=== PATIENT | male | born 1975 ===

== ENCOUNTER 2021-05-28 04:07 | Inpatient (IN) | payer MEDICAID ==
[~2021-05-28] VITALS: Ht 172.7 cm; Wt 103.0 kg
[2021-05-28] MEDS ORDERED: SODIUM CHLORIDE 0.9% 100 ML ONE (04:37)
[2021-05-28] MEDS ORDERED: IOHEXOL 350 MG/ML 100 ML VIAL ONE (04:37)
[2021-05-28] MEDS ORDERED: METOCLOPRAMIDE HCL 5 MG/ML 2 ML VIAL IVP ONE (04:45)
[2021-05-28] MEDS ORDERED: DIAZEPAM 5 MG/ML 2 ML SYRINGE IVP ONE (04:45)
[2021-05-28 04:50] LABS: GLUCOSE,POINT OF CARE 153 MG/DL (70-110)
[2021-05-28 05:06] LABS: ACETAMINOPHEN < 2 mcg/mL (10-30)
[2021-05-28 05:10] LABS: EOSINOPHILS % (AUTO) 2.6 % (1.0-6.0); HEMATOCRIT 49.6 % (41-53); HEMOGLOBIN 15.6 g/dL (13.5-17.5); LYMPHOCYTES # (AUTO) 3.4 K/uL (1.0-4.8); LYMPHOCYTES % (AUTO) 26.9 % (22.0-44.0); MEAN CORPUSCULAR HEMOGLOBIN 20.8 pg (26.0-34.0); MEAN CORPUSCULAR HGB CONC 31.5 G/dL (31.0-37.0); MEAN CORPUSCULAR VOLUME 66 fL (80-100); MONOCYTES # (AUTO) 0.8 K/uL (0.1-1.0); MONOCYTES % (AUTO) 6.5 % (2.0-9.0); NEUTROPHILS # (AUTO) 8.1 K/uL (1.8-7.7); PLATELET COUNT (AUTO) 192 K/uL (150-450); RED BLOOD CELL COUNT(AUTO) 7.49 MIL/uL (4.50-5.90)
[2021-05-28 05:11] LABS: INR 0.9 (0.9-1.1); PROTHROMBIN TIME 10.1 SEC (9.4-11.6)
[2021-05-28 05:28] LABS: ALBUMIN 3.4 g/dL (3.4-5.0); BILIRUBIN,TOTAL 0.4 mg/dL (0.1-1.0); CALCIUM, TOTAL 8.9 mg/dL (8.8-10.5); CREATININE 1.44 mg/dL (0.60-1.30); POTASSIUM 3.5 mmol/L (3.5-5.1)
[2021-05-28] MEDS: NiCARDipine HCL 25 MG in SODIUM CHLORIDE 0.9% 240 ML IV PRN ×3 (05:34→11:10)
[2021-05-28 06:21] LABS: SALICYLATE 1.4 mg/dL (2.8-20.0)
[2021-05-28] MEDS ORDERED: 0.9% SODIUM CHLORIDE 10 ML SYRINGE IVP PRN (08:00)
[2021-05-28] MEDS ORDERED: ONDANSETRON HCL 4 MG/2 ML VIAL IVP PRN (08:45)
[2021-05-28] MEDS ORDERED: BISACODYL 10 MG RECTAL RECTAL SUPPOSITORY PR PRN (08:45)
[2021-05-28 08:50] LABS: COVID AG,FIA SOURCE NASOPHARYNGEAL
[2021-05-28] MEDS: PANTOPRAZOLE SODIUM 40 MG/VIAL IVP SCH (08:56)
[2021-05-28] MEDS: HydrALAZINE HCL 20 MG/ML VIAL IVP PRN ×2 (10:44→18:45)
[2021-05-28] MEDS: NiCARDipine HCL 25 MG in DEXTROSE 5%-WATER 240 ML IV PRN ×4 (13:20→22:09)
[2021-05-29] MEDS: HydrALAZINE HCL 20 MG/ML VIAL IVP PRN (02:17)
[2021-05-29] MEDS: NiCARDipine HCL 25 MG in DEXTROSE 5%-WATER 240 ML IV PRN ×3 (03:49→22:57)
[2021-05-29 06:42] LABS: BASOPHILS % (AUTO) 1.1 % (0.0-2.0); EOSINOPHILS % (AUTO) 0.2 % (1.0-6.0); HEMATOCRIT 46.4 % (41-53); LYMPHOCYTES # (AUTO) 2.3 K/uL (1.0-4.8); LYMPHOCYTES % (AUTO) 15.4 % (22.0-44.0); MEAN CORPUSCULAR HEMOGLOBIN 21.3 pg (26.0-34.0); MEAN CORPUSCULAR HGB CONC 32.4 G/dL (31.0-37.0); MEAN CORPUSCULAR VOLUME 66 fL (80-100); MONOCYTES % (AUTO) 6.8 % (2.0-9.0); NEUTROPHILS # (AUTO) 11.4 K/uL (1.8-7.7); NEUTROPHILS % (AUTO) 76.5 % (40.0-70.0); PLATELET COUNT (AUTO) 226 K/uL (150-450); RED BLOOD CELL COUNT(AUTO) 7.06 MIL/uL (4.50-5.90); RED CELL DISTRIBUTION WIDTH 15.8 % (11.5-14.5)
[2021-05-29 06:50] LABS: ALBUMIN 3.5 g/dL (3.4-5.0); BILIRUBIN,TOTAL 0.6 mg/dL (0.1-1.0); CREATININE 1.5 mg/dL (0.60-1.30); POTASSIUM 3.5 mmol/L (3.5-5.1); TOTAL PROTEIN, SERUM 7.7 g/dL (6.4-8.2)
[2021-05-29 06:57] LABS: PROTHROMBIN TIME 10.5 SEC (9.4-11.6)
[2021-05-29] MEDS: ACETAMINOPHEN 325 MG TABLET PO PRN (07:53)
[2021-05-29] MEDS: PANTOPRAZOLE SODIUM 40 MG/VIAL IVP SCH (10:46)
[2021-05-29] MEDS: LABETALOL HCL 100 MG TABLET PO SCH ×2 (11:39→21:16)
[2021-05-29] MEDS: LOSARTAN POTASSIUM 25 MG TABLET PO SCH ×2 (11:39→21:16)
[2021-05-29 13:57] LABS: BILIRUBIN,URINE NEGATIVE (NEGATIVE); GLUCOSE, URINE (UA) NEGATIVE (NEGATIVE); KETONES,URINE NEGATIVE (NEGATIVE); LEUKOCYTE ESTERASE ,URINE NEGATIVE (NEGATIVE); NITRATE,URINE NEGATIVE (NEGATIVE); OCCULT BLOOD,URINE SMALL (NEGATIVE); PROTEIN,URINE SEE CONFIRM (NEGATIVE); UROBILINOGEN,URINE 0.2 mg/dL (<=1.0)
[2021-05-29 13:58] LABS: APPEARANCE,URINE HAZY (CLEAR)
[2021-05-29 14:03] LABS: BACTERIA,URINE None Seen /HPF (None Seen); RBC,URINE 0-2 /HPF (0-2); SULFOSALICYLIC ACID,URINE 2+ (Negative); WBC,URINE None Seen /HPF (0-5)
[2021-05-29 14:05] LABS: AMPHET/METH SCREEN,URINE NEGATIVE (NEGATIVE); BARBITURATE SCREEN, URINE NEGATIVE (NEGATIVE); BENZODIAZEPINES SCREEN,URINE NEGATIVE (NEGATIVE); CANNABINOID SCREEN,URINE NEGATIVE (NEGATIVE); COCAINE SCREEN,URINE NEGATIVE (NEGATIVE); METHADONE SCREEN, URINE NEGATIVE (NEGATIVE); OPIATE SCREEN,URINE NEGATIVE (NEGATIVE); PHENCYCLIDINE SCREEN,URINE NEGATIVE (NEGATIVE)
[2021-05-30] MEDS: PANTOPRAZOLE SODIUM 40 MG/VIAL IVP SCH (08:11)
[2021-05-30] MEDS: NiCARDipine HCL 25 MG in DEXTROSE 5%-WATER 240 ML IV PRN (08:16)
[2021-05-30] MEDS: LABETALOL HCL 100 MG TABLET PO SCH ×2 (08:17→21:11)
[2021-05-30] MEDS: LOSARTAN POTASSIUM 25 MG TABLET PO SCH ×2 (08:17→21:11)
[2021-05-30] MEDS: HydrALAZINE HCL 20 MG/ML VIAL IVP PRN (17:03)
[2021-05-30 17:11] VITALS: BP 192/129
[2021-05-30 18:19] VITALS: BP 168/89
[2021-05-30 20:41] VITALS: BP 141/108
[2021-05-30] MEDS ORDERED: MORPHINE SULFATE 2 MG/ML SYRINGE IVP PRN (22:00)
[2021-05-31] VITALS (10 sets, daily range): BP systolic 119–204; BP diastolic 74–117
[2021-05-31] MEDS: HydrALAZINE HCL 20 MG/ML VIAL IVP PRN ×2 (01:29→09:32)
[2021-05-31] MEDS: LABETALOL HCL 100 MG TABLET PO SCH ×2 (08:17→20:28)
[2021-05-31] MEDS: LOSARTAN POTASSIUM 25 MG TABLET PO SCH (08:18)
[2021-05-31] MEDS: PANTOPRAZOLE SODIUM 40 MG/VIAL IVP SCH (08:18)
[2021-05-31] MEDS: ACETAMINOPHEN 325 MG TABLET PO PRN (12:17)
[2021-05-31] MEDS ORDERED: LOSARTAN POTASSIUM 25 MG TABLET PO ONE (14:15)
[2021-05-31] MEDS ORDERED: NIFEdipine 30 MG ER TABLET PO ONE (15:45)
[2021-05-31] MEDS: LOSARTAN POTASSIUM 50 MG TABLET PO SCH (20:30)
[2021-06-01] VITALS (13 sets, daily range): BP systolic 118–190; BP diastolic 68–108
[2021-06-01] MEDS: HydrALAZINE HCL 20 MG/ML VIAL IVP PRN (04:54)
[2021-06-01] MEDS: PANTOPRAZOLE SODIUM 40 MG/VIAL IVP SCH (08:10)
[2021-06-01] MEDS: LOSARTAN POTASSIUM 50 MG TABLET PO SCH (08:11)
[2021-06-01] MEDS: LABETALOL HCL 100 MG TABLET PO SCH (08:11)
[2021-06-01] MEDS ORDERED: NIFEdipine 30 MG ER TABLET PO SCH (09:00)
[2021-06-01] MEDS ORDERED: LABE100T51 PO (13:30)
[2021-06-01] MEDS ORDERED: NIFE-40 PO (13:30)
[2021-06-01] MEDS ORDERED: LOSA50TA2 PO (13:30)
[2021-06-01 14:12] LABS: BASOPHILS % (AUTO) 0.6 % (0.0-2.0); EOSINOPHILS % (AUTO) 1.8 % (1.0-6.0); HEMATOCRIT 48.9 % (41-53); HEMOGLOBIN 15.3 g/dL (13.5-17.5); LYMPHOCYTES # (AUTO) 2.1 K/uL (1.0-4.8); LYMPHOCYTES % (AUTO) 22.5 % (22.0-44.0); MEAN CORPUSCULAR HGB CONC 31.3 G/dL (31.0-37.0); MEAN CORPUSCULAR VOLUME 67 fL (80-100); MONOCYTES # (AUTO) 0.7 K/uL (0.1-1.0); MONOCYTES % (AUTO) 7.4 % (2.0-9.0); NEUTROPHILS # (AUTO) 6.2 K/uL (1.8-7.7); NEUTROPHILS % (AUTO) 67.7 % (40.0-70.0); PLATELET COUNT (AUTO) 260 K/uL (150-450); RED CELL DISTRIBUTION WIDTH 16.2 % (11.5-14.5)
[2021-06-01 14:29] LABS: ALBUMIN 3.3 g/dL (3.4-5.0); BILIRUBIN,TOTAL 0.5 mg/dL (0.1-1.0); CALCIUM, TOTAL 9.3 mg/dL (8.8-10.5); CREATININE 1.59 mg/dL (0.60-1.30); TOTAL PROTEIN, SERUM 7.3 g/dL (6.4-8.2)
== END 2021-06-01 17:25 | disposition home or self-care (01) | DRG 44 ==
LOC: EMS 04:09 → ICU 05-30 06:00 → 5S 05-30 15:20
PROVIDERS: ADMIT Internal Medicine; ATTEND Internal Medicine
DX: I61.4 Nontraumatic intracerebral hemorrhage in cerebellum (principal); I67.1 Cerebral aneurysm, nonruptured; D72.829 Elevated white blood cell count, unspecified; E66.9 Obesity, unspecified; E78.00 Pure hypercholesterolemia, unspecified; G43.919 Migraine, unspecified, intractable, without status migrainosus; I10 Essential (primary) hypertension; Z20.822 Contact with and (suspected) exposure to COVID-19; I16.1 Hypertensive emergency; R29.700 NIHSS score 0; Z91.14 Patient's other noncompliance with medication regimen; Z87.891 Personal history of nicotine dependence; Z91.19 Patient's noncompliance with other medical treatment and regimen; Z68.34 Body mass index [BMI] 34.0-34.9, adult
CPT/HCPCS: 70496; 71045; 80053; 81001; 81002; 82962; 83880; 84484; 85025; 85610; 85730; 86850; 86900; 86901; 92610; 93005; 93306; 97112; 97116; 97162; 97167; 97530; 97535; 99291; C9113; G0480; G0481; J0360; J2270; J2765; J3490; J7050; J7060; Q9967; 36415-L1; 36415-TC; 70450; 70450-TC